=== PATIENT | female | born 1985 | race African-American/Black ===

== ENCOUNTER 2023-03-12 12:36 | Emergency (ER) | payer SELFPAY ==
[~2023-03-12] VITALS: Ht 170.2 cm; Wt 52.1 kg
[2023-03-12 12:59] LABS: URINE BLOOD DIPSTICK Moderate (NEGATIVE); URINE GLUCOSE - DIPSTICK Negative (NEGATIVE); URINE KETONE 15 mg/dL (NEGATIVE); URINE LEUK ESTERASE Negative (NEGATIVE); URINE NITRITE - DIPSTICK Negative (Negative); URINE PROTEIN - DIPSTICK 30 mg/dL (NEG-TRACE); URINE SPECIFIC GRAVITY >=1.030
[2023-03-12 13:01] LABS: URINE COLOR Yellow
[2023-03-12 13:02] LABS: URINE EPITHELIAL CELLS MODERATE EPI/hpf (0-FEW); URINE MUCUS FEW hpf (NONE-FEW)
[2023-03-12 13:39] LABS: BASO% 1.5 % (0-3); EOS% 0.4 % (0-8); HEMATOCRIT 36.4 % (37.0-47.0); HEMOGLOBIN 11.6 g/dl (12.0-16.0); LYMPH% 36.8 % (15-41); MEAN CELL VOLUME 86.3 fL CALC (80.0-100.0); MEAN CORPUSCULAR HGB 27.5 pG CALC (26.0-32.0); MEAN CORPUSCULAR HGB CONC 31.9 g/dL CAL (32.0-36.0); MONO% 9.2 % (2-13); NEUT# 2.49 thou/uL (2.00-7.15); NEUT% 52.1 % (42-76); RED BLOOD COUNT 4.22 mill/uL (4.20-5.60); RED CELL DISTRI WIDTH 17.5 % (11.5-15.5)
[2023-03-12 13:50] LABS: ALBUMIN 5.3 g/dL (3.2-5.0); ALKALINE PHOSPHATASE 44 u/l (38-126); ANION GAP 15 (6-22 (CALC)); BUN 16 mg/dL (7-17); BUN/CREATININE RATIO 20 (12-20 (CALC)); CARBON DIOXIDE 22 mmol/l (22-30); CHLORIDE 104 mmol/l (95-108); CREATININE 0.8 mg/dL (0.5-1.0); GFR FOR AFR.AMER. > 60 ML/MIN (>=60 (CALC)); GFR OTHER RACES > 60 ML/MIN (>=60 (CALC)); POTASSIUM 4.2 mmol/l (3.5-5.1); SGOT/AST 25 u/l (14-36); SODIUM 137 mmol/l (137-146); TOTAL PROTEIN 8.7 g/dL (6.3-8.2)
[2023-03-12] MEDS ORDERED: NAPROXEN500 MG PO ×2 (15:39→15:46)
[2023-03-12] MEDS ORDERED: METHOCARBAMOL500 MG PO ×2 (15:39→15:46)
[2023-03-12] MEDS ORDERED: NEURONTIN100 MG PO ×2 (15:39→15:46)
[2023-03-12 15:40] VITALS: BP 120/82
== END 2023-03-12 15:40 | disposition home or self-care (01) | DRG 313 ==
LOC: ED 12:36
PROVIDERS: Nurse Practitioner
DX: R07.89 Other chest pain (principal); E03.9 Hypothyroidism, unspecified